=== PATIENT | female | born 1950 | race Caucasian/White ===

== ENCOUNTER 2020-08-26 13:48 | Inpatient (IN) ==
[2020-08-26] MEDS ORDERED: Ondansetron 4 MG/2 ML VIAL IVP ONE ×2 (14:11→15:28)
[2020-08-26] MEDS ORDERED: 0.9 % Sodium Chloride 1,000 ML IVC ONE (14:11)
[2020-08-26] MEDS ORDERED: Pantoprazole 40 MG VIAL IVP ONE (14:12)
[2020-08-26] MEDS ORDERED: Metoclopramide 10 MG/2 ML VIAL IVP ONE (14:37)
[2020-08-26 14:41] LABS: Basophils % 0.3 %; Hemoglobin 11.4 g/dL (11.5-15.4); Immature Granulocytes % 0.7 % (0-4); Lymphocytes # 0.9 K/mcL (0.6-4.6); Lymphocytes % 11.2 %; Mean Corpuscular HGB Conc 32.6 g/dL (31.6-35.5); Mean Corpuscular Hemoglobin 28.8 pg (28.0-33.3); Mean Corpuscular Volume 88.4 fL (83.0-100.0); Mean Platelet Volume 10.9 fL (9.4-12.4); Monocytes # 0.5 K/mcL (0.0-1.3); Monocytes % 6.2 %; Neutrophils # 6.2 K/mcL (1.6-8.9); Platelet Count 229 K/mcL (140-400); Red Blood Count 3.96 M/mcL (3.82-4.97); Red Cell Distribution Width 13.2 % (11.5-14.5); Segmented Neutrophils % 81.6 %; White Blood Count 7.6 K/mcL (4.3-11.1)
[2020-08-26 15:00] LABS: Albumin 3.7 g/dL (3.5-5.7); Albumin/Globulin Ratio 1.2 (1.1-2.2); Bilirubin,Total 0.4 mg/dL (0.3-1.0); Calcium 8.3 mg/dL (8.6-10.3); Potassium 3.2 mEq/L (3.5-5.1); Total Protein 6.7 g/dL (6.4-8.9)
[2020-08-26 15:07] LABS: Bilirubin,Urine Negative (Negative); Blood,Urine Trace-intact (Negative); Clarity,Urine Clear (Clear); Color,Urine Yellow (Yellow); Glucose,Urine (UA) Normal (Normal); Ketones,Urine 40 mg/dL (Negative); Leukocyte Esterase,Urine Negative (Negative); Nitrite,Urine Negative (Negative); Protein,Urine 30 mg/dL (Neg-Trace); Specific Gravity,Urine 1.025 (1.010-1.025); Urobilinogen,Urine Normal (Normal)
[2020-08-26] MEDS ORDERED: cefTRIAXone 1,000 MG in Water for inj. (sterile) 10 ML IVP ONE (15:12)
[2020-08-26 15:13] LABS: RBC,Urine 0-3 per hpf (0-3)
[2020-08-26 15:14] LABS: Squamous Epithelial Cell,Urine Few per hpf (None-Few)
[2020-08-26] MEDS ORDERED: Dexamethasone 4 MG/ML VIAL IVP ONE (15:51)
[2020-08-26] MEDS: 0.9 % Sodium Chloride 1,000 ML IVC SCH ×2 (16:10→20:31)
[2020-08-26] MEDS: Ondansetron 4 MG/2 ML VIAL IVP PRN (21:05)
[2020-08-27] MEDS: 0.9 % Sodium Chloride 1,000 ML IVC SCH ×4 (00:45→13:16)
[2020-08-27] MEDS: Gabapentin 300 MG CAPSULE PO SCH ×4 (02:50→20:28)
[2020-08-27] MEDS: Melatonin 3 MG TABLET PO SCH ×2 (02:50→20:28)
[2020-08-27] MEDS: Ondansetron 4 MG/2 ML VIAL IVP PRN ×3 (03:00→15:28)
[2020-08-27] MEDS: Acetaminophen 325 MG TABLET PO PRN ×2 (06:12→12:44)
[2020-08-27 06:21] LABS: Basophils % 0.1 %; Hematocrit 34.3 % (35.3-44.9); Hemoglobin 11.2 g/dL (11.5-15.4); Immature Granulocytes % 1.5 % (0-4); Lymphocytes # 0.9 K/mcL (0.6-4.6); Lymphocytes % 11.4 %; Mean Corpuscular HGB Conc 32.7 g/dL (31.6-35.5); Mean Corpuscular Hemoglobin 28.7 pg (28.0-33.3); Mean Corpuscular Volume 87.9 fL (83.0-100.0); Mean Platelet Volume 10.5 fL (9.4-12.4); Monocytes # 0.5 K/mcL (0.0-1.3); Platelet Count 247 K/mcL (140-400); Red Cell Distribution Width 13.2 % (11.5-14.5); White Blood Count 7.4 K/mcL (4.3-11.1)
[2020-08-27 06:41] LABS: BUN/Creatinine Ratio 18 (6-26); Blood Urea Nitrogen 16 mg/dL (8-23); Calcium 7.3 mg/dL (8.6-10.3); Carbon Dioxide 20 mEq/L (23-29); Chloride 109 mEq/L (98-107); Glucose 94 mg/dL (70-105); Osmolality,Calculated 295 (280-300); Potassium 3.3 mEq/L (3.5-5.1); Sodium 142 mEq/L (136-145); eGFR For African Americans > 60 (> 60); eGFR For Non-African Americans > 60 (> 60)
[2020-08-27] MEDS: Aspirin Enteric Coated 81 MG Tablet PO SCH (08:50)
[2020-08-27] MEDS: Losartan/HCTZ 50-12.5 TABLET PO SCH (08:50)
[2020-08-27] MEDS ORDERED: dexAMETHasone 4 MG TABLET PO SCH (09:00)
[2020-08-27] MEDS ORDERED: levoFLOXacin 750 MG/150 ML 750 MG/150 ML BAG IVPB SCH (09:00)
[2020-08-27] MEDS ORDERED: Furosemide 20 MG/2 ML VIAL IVP ONE (16:59)
[2020-08-27 19:11] LABS: C-Reactive Protein 27 mg/L (Less than 10)
[2020-08-27 19:18] LABS: Ferritin 180 ng/mL (10-120)
[2020-08-28] MEDS: Acetaminophen 325 MG TABLET PO PRN (04:53)
[2020-08-28] MEDS: *HR* Enoxaparin 40 MG/0.4 ML SYRINGE SQ SCH (04:54)
[2020-08-28 06:05] LABS: Basophils % 0.2 %; Eosinophils % 0.2 %; Hemoglobin 11.7 g/dL (11.5-15.4); Immature Granulocytes % 1.6 % (0-4); Lymphocytes # 1.3 K/mcL (0.6-4.6); Mean Corpuscular HGB Conc 33.4 g/dL (31.6-35.5); Mean Corpuscular Volume 86.8 fL (83.0-100.0); Mean Platelet Volume 10.5 fL (9.4-12.4); Monocytes # 0.8 K/mcL (0.0-1.3); Monocytes % 9.3 %; Neutrophils # 5.9 K/mcL (1.6-8.9); Platelet Count 277 K/mcL (140-400); Red Blood Count 4.03 M/mcL (3.82-4.97); Red Cell Distribution Width 13.3 % (11.5-14.5); Segmented Neutrophils % 72.7 %; White Blood Count 8.1 K/mcL (4.3-11.1)
[2020-08-28 06:24] LABS: BUN/Creatinine Ratio 13 (6-26); Blood Urea Nitrogen 11 mg/dL (8-23); Calcium 7.8 mg/dL (8.6-10.3); Carbon Dioxide 25 mEq/L (23-29); Chloride 104 mEq/L (98-107); Glucose 83 mg/dL (70-105); Osmolality,Calculated 293 (280-300); Potassium 3.1 mEq/L (3.5-5.1); Sodium 142 mEq/L (136-145); eGFR For African Americans > 60 (> 60); eGFR For Non-African Americans > 60 (> 60)
[2020-08-28] MEDS: Losartan/HCTZ 50-12.5 TABLET PO SCH (09:32)
[2020-08-28] MEDS: Gabapentin 300 MG CAPSULE PO SCH ×3 (09:32→21:11)
[2020-08-28] MEDS: Aspirin Enteric Coated 81 MG Tablet PO SCH (09:32)
[2020-08-28] MEDS: Dexamethasone 4 MG/ML VIAL IVP SCH (09:33)
[2020-08-28] MEDS: levoFLOXacin 750 MG/150 ML 750 MG/150 ML BAG IVPB SCH (09:33)
[2020-08-28] MEDS: Melatonin 3 MG TABLET PO SCH (21:11)
[2020-08-29] MEDS: Acetaminophen 325 MG TABLET PO PRN (01:24)
[2020-08-29] MEDS: *HR* Enoxaparin 40 MG/0.4 ML SYRINGE SQ SCH (05:25)
[2020-08-29 06:04] LABS: Basophils % 0.2 %; Eosinophils % 0.1 %; Hematocrit 35.4 % (35.3-44.9); Hemoglobin 11.9 g/dL (11.5-15.4); Lymphocytes # 1.4 K/mcL (0.6-4.6); Lymphocytes % 15.7 %; Mean Corpuscular HGB Conc 33.6 g/dL (31.6-35.5); Mean Corpuscular Volume 86.1 fL (83.0-100.0); Mean Platelet Volume 10.3 fL (9.4-12.4); Monocytes # 0.9 K/mcL (0.0-1.3); Monocytes % 9.3 %; Neutrophils # 6.6 K/mcL (1.6-8.9); Platelet Count 293 K/mcL (140-400); Red Blood Count 4.11 M/mcL (3.82-4.97); Red Cell Distribution Width 13.5 % (11.5-14.5); Segmented Neutrophils % 72.7 %; White Blood Count 9.1 K/mcL (4.3-11.1)
[2020-08-29 07:12] LABS: BUN/Creatinine Ratio 13 (6-26); Blood Urea Nitrogen 11 mg/dL (8-23); Calcium 8.1 mg/dL (8.6-10.3); Carbon Dioxide 27 mEq/L (23-29); Chloride 104 mEq/L (98-107); Glucose 89 mg/dL (70-105); Magnesium 1.7 mg/dL (1.6-2.6); Osmolality,Calculated 291 (280-300); Potassium 3.2 mEq/L (3.5-5.1); Sodium 141 mEq/L (136-145); eGFR For African Americans > 60 (> 60); eGFR For Non-African Americans > 60 (> 60)
[2020-08-29 07:14] VITALS: BP 161/93
[2020-08-29] MEDS: Aspirin Enteric Coated 81 MG Tablet PO SCH (08:14)
[2020-08-29] MEDS: Losartan/HCTZ 50-12.5 TABLET PO SCH (08:14)
[2020-08-29] MEDS: Gabapentin 300 MG CAPSULE PO SCH (08:14)
[2020-08-29] MEDS: Dexamethasone 4 MG/ML VIAL IVP SCH (08:15)
[2020-08-29 08:16] LABS: C-Reactive Protein 9 mg/L (Less than 10)
[2020-08-29] MEDS: levoFLOXacin 750 MG/150 ML 750 MG/150 ML BAG IVPB SCH (08:22)
== END 2020-08-29 15:34 | disposition home or self-care (01) | DRG 177 ==
LOC: EMEROOGRE 13:48 → INTOOBSV 16:15 → INPGRE 16:15
PROVIDERS: ADMIT Family Medicine; ATTEND Family Medicine